=== PATIENT | female | born 1955 | race Caucasian/White ===

== ENCOUNTER 2017-03-25 07:14 | Emergency (ER) | payer BC ==
[2017-03-25 07:26] VITALS: BP 105/68
--- NOTE | 2017-03-25 07:40 | UC ---
Lower Extremity/Ankle HPI - HPI Summary HPI Summary: yesterday morning pt slipped twisting right ankle. Pt with pain and swelling since worse with movement and standing. no analgesia taken + applied ice no strike head, LOC no neck or back pain No knee or hip pain no paresthesia No other complaints Pt's medications reviewed this visit - History of Current Complaint Chief Complaint: UCLowerExtremity Stated Complaint: ANKLE INJURY Time Seen by Provider: 03/25/17 07:18 Hx Obtained From: Patient Hx Last Menstrual Period: NA Onset/Duration: Sudden Onset, Lasting Days Severity Initially: Mild Severity Currently: Mild Pain Intensity: 2 Pain Scale Used: 0-10 Numeric - Allergies/Home Medications Allergies/Adverse Reactions: Allergies Allergy/AdvReac Type Severity Reaction Status Date / Time MS Amoxicillin [Amoxicillin] Allergy Rash Verified 03/25/17 07:26 MS Fexofenadine Allergy Hives Verified 03/25/17 07:26 [From Janel] MS Sulfa Drugs [Sulfa Drugs] Allergy Rash Verified 03/25/17 07:26 Home Medications: Home Medications Rabeprazole Sodium [Aciphex] 20 mg PO DAILY WITH MEAL 03/25/17 [History Confirmed 03/25/17] PMH/Surg Hx/FS Hx/Imm Hx Previously Healthy: Yes GI/ History: Gastroesophageal Reflux - Surgical History Surgical History: None Surgery Procedure, Year, and Place: denies - Family History Known Family History: Positive: Hypertension - Social History Occupation: Employed Full-time Lives: With Family Alcohol Use: Occasionally Substance Use Type: None Smoking Status (MU): Former Smoker Review of Systems Constitutional: Negative Neurovascular: Other - right ankle pain All Other Systems Reviewed And Are Negative: Yes Physical Exam Triage Information Reviewed: Yes Appearance: Well-Appearing, No Pain Distress, Well-Nourished Vital Signs: Initial Vital Signs Temp 98.2 F 03/25/17 07:21 Pulse 74 03/25/17 07:21 Resp 18 03/25/17 07:21 BP 105/68 03/25/17 07:21 Pulse Ox 100 03/25/17 07:21 ENT: Positive: Hearing grossly normal Neck: Positive: Supple Respiratory: Positive: Normal breath sounds, No respiratory distress Cardiovascular: Positive: Other: - + 2+ DP, PT CBT <2 sec Musculoskeletal: Positive: Other: - + flex/ext knee + flex/ext ankle with pain lateral malleous + TTP inferior, anterior lat malleoulus pain palpatio 1st MT no crepitus Neurological Exam: Normal Neurological: Positive: Other: - + gross sensation throughout foot Psychological Exam: Normal Skin: Positive: Other - edema right lat malleolus no ecchymosis Diagnostics - Radiology No standard instances Radiology Interpretation Completed By: Radiologist - FINDINGS: There is an avulsion fracture lateral malleolus. There may be both acute and chronic changes. There is an old avulsion fracture medial malleolus. The ankle mortise is intact. There is lateral soft tissue swelling. IMPRESSION: EVIDENCE OF REMOTE POST TRAUMATIC INJURY WITH PROBABLE NEW SMALL AVULSION FRACTURE FROM THE LATERAL MALLEOLUS. LATERAL SOFT TISSUE SWELLING <Electronically signed by Kennedy Riley MD in [place]> 03/25/17837 Dictated By: Kennedy Riley MD Dictated Date/Time: 09/02 Transcribed Date/Time: 03/25/17835 Copy to: IMPRESSION: DEGENERATIVE CHANGES DESCRIBED. NO ACUTE FINDINGS. <Electronically signed by Kennedy Riley MD in [place]> 03/25/17838 Dictated By: Kennedy Riley MD Dictated Date /Time: 03/25/17838 Transcribed Date/Time: 03/25/17837 Copy to: Lower Extremity Course/Dx - Course Course Of Treatment: Pt with pain lateral right malleolus and medial MT s/p fal yesterday. declined analgesia. declined ice. image. cuong. air splint. possible crutches - Differential Dx/Diagnosis Provider Diagnoses: avulsion fracture. ankle sprain Discharge - Discharge Plan Condition: Stable Disposition: HOME Patient Education Materials: Ankle Sprain (ED), Avulsion Fracture (ED) Referrals: Sylvain Medina MD [Primary Care Provider] - Johan Lima MD [Medical Doctor] - 5 Days Additional Instructions: - wear cuong wrap and splint for comforta and support - alternate ibuprofen (Advil, motrin) and tylenol every 3horus as needed for pain - apply ice (wrapped in a towel)20 minutes at a time, 2-3 times a day - elevate your leg to help with swelling and pain - contact the orthopedic provider to schedule a follow-up appointment
--- NOTE | 2017-03-25 08:41 | RAD ---
INDICATION: Fall. Lateral left ankle pain COMPARISON: None TECHNIQUE: AP, lateral, and oblique views were obtained. FINDINGS: There is an avulsion fracture lateral malleolus. There may be both acute and chronic changes. There is an old avulsion fracture medial malleolus. The ankle mortise is intact. There is lateral soft tissue swelling. IMPRESSION: EVIDENCE OF REMOTE POST TRAUMATIC INJURY WITH PROBABLE NEW SMALL AVULSION FRACTURE FROM THE LATERAL MALLEOLUS. LATERAL SOFT TISSUE SWELLING
--- NOTE | 2017-03-25 08:42 | RAD ---
INDICATION: Right foot pain COMPARISON: None TECHNIQUE: AP, lateral, and oblique views were obtained. FINDINGS: There is no acute bony change. 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 There is a prominent plantar calcaneal spur. There is a tiny Achilles calcaneal spur. IMPRESSION: DEGENERATIVE CHANGES DESCRIBED. NO ACUTE FINDINGS.
== END 2017-03-25 09:10 | disposition home or self-care (01) ==
LOC: UCEAST 07:14
DX: S82.51XA Displaced fracture of medial malleolus of right tibia, initial encounter for closed fracture (principal); X50.0XXA Overexertion from strenuous movement or load, initial encounter; W18.40XA Slipping, tripping and stumbling without falling, unspecified, initial encounter; Y93.9 Activity, unspecified; Y92.9 Unspecified place or not applicable; Z87.891 Personal history of nicotine dependence
CPT/HCPCS: 99213; G0463

== ENCOUNTER 2017-10-31 17:21 | Emergency (ER) | payer BC ==
[2017-10-31 17:30] VITALS: BP 127/91
--- NOTE | 2017-10-31 17:41 | UC ---
Cardiac HPI - HPI Summary HPI Summary: 62 y/p female presents to the urgent care c/o c/o "muscle spasm" in both shoulders and upper chest for 20-30 seconds 2 wks ago. Same thing happened twice in the last 24 hours. Denies SOB, Diaphoresis, nausea or vomiting. - History of Current Complaint Chief Complaint: UCGeneralIllness Stated Complaint: MUSCLE SPASMS Time Seen by Provider: 10/31/17 17:35 Hx Obtained From: Patient Hx Last Menstrual Period: NA Pain Intensity: 0 - Allergy/Home Medications Allergies/Adverse Reactions: Allergies Allergy/AdvReac Type Severity Reaction Status Date / Time amoxicillin Allergy Rash Verified 10/31/17 17:35 fexofenadine [From Janel] Allergy Hives Verified 10/31/17 17:35 Sulfa (Sulfonamide Allergy Rash Verified 10/31/17 17:35 Antibiotics) PMH/Surg Hx/FS Hx/Imm Hx - Surgical History Surgical History: None Surgery Procedure, Year, and Place: denies - Family History Known Family History: Positive: Hypertension - Social History Alcohol Use: Occasionally Substance Use Type: None Smoking Status (MU): Former Smoker Physical Exam - Summary Physical Exam Summary: VITAL SIGNS: Reviewed. GENERAL: Patient is a well developed and nourished female who is sitting comfortable in the examining table. Patient is not in any acute respiratory distress. HEAD AND FACE: No signs of trauma. No ecchymosis, hematomas or skull depressions. No sinus tenderness. EYES: PERRLA, EOMI x 2, No injected conjunctiva, no nystagmus. No photophobia. EARS: Hearing grossly intact. Ear canals and tympanic membranes are within normal limits. Nose: edematous and erythematous nasal mucosa w/ clear nasal discharge. MOUTH: Positive no erythema, no tonsillar enlargement. Uvula in midline. NECK: Supple, trachea is midline, Positive anterior cervical lymphadenopathy, no JVD, no carotid bruit, no c-spine tenderness, neck with full ROM. No meningeal signs, no Kernig's or brudzinskis signs. CHEST: Symmetric, no tenderness at palpation LUNGS: Clear to auscultation bilaterally. No wheezing or crackles. CVS: Regular rate and rhythm, S1 and S2 present, no murmurs or gallops appreciated. ABDOMEN: Soft, non-tender. No signs of distention. No rebound no guarding, and no masses palpated. Bowel sounds are normal. EXTREMITIES: FROM in all major joints, no edema, no cyanosis or clubbing. NEURO: Alert and oriented x 3. No acute neurological deficits. Speech is normal and follows commands. SKIN: Dry and warm Triage Information Reviewed: Yes Vital Signs: Initial Vital Signs Temp 98.0 F 10/31/17 17:26 Pulse 74 10/31/17 17:26 Resp 12 10/31/17 17:26 BP 127/91 10/31/17 17:26 Pulse Ox 98 10/31/17 17:26 Discharge - Sign-Out/Discharge Documenting (check all that apply): Patient Departure - D/c home All imaging exams completed and their final reports reviewed: No Studies - Discharge Plan Condition: Stable Disposition: HOME Patient Education Materials: Muscle Spasm (ED) Referrals: Sylvain Medina MD [Primary Care Provider] - - Billing Disposition and Condition Condition: STABLE Disposition: Home
== END 2017-10-31 18:40 | disposition home or self-care (01) ==
LOC: UCEAST 17:21
DX: M62.838 Other muscle spasm (principal); R07.89 Other chest pain; Z88.0 Allergy status to penicillin; Z88.2 Allergy status to sulfonamides; Z88.8 Allergy status to other drugs, medicaments and biological substances; Z87.891 Personal history of nicotine dependence
CPT/HCPCS: 93005; 99212; G0463

== ENCOUNTER 2018-01-21 11:54 | Emergency (ER) | payer OTHER ==
--- NOTE | 2018-01-21 12:17 | UC ---
Upper Extremity HPI - HPI Summary HPI Summary: 62-year-old woman comes to clinic today with chief complaint of fall. Just prior to arrival she tripped and fell striking her right cheek right elbow left lower ribs and left anterior johnson. Denies any loss of consciousness. She is not on any blood thinners. She struck her face just below the right eye. No blurry vision no pain with movement of the eyes no double vision. Denies any jaw or tooth pain or nose pain. Denies any neck pain. Her biggest complaint at this moment is pain in the right elbow. It hurts in the proximal radial aspect of the elbow. Pain is worse with pronation and supination and flexion and extension of the elbow. Pain is less when she doesn't move it. She also has some left lower anterior rib pain. Denies any abdominal pain. Pain in the ribs is worse with taking a deep breath and with palpation. She does not feel short of breath at rest. She also has a laceration the left johnson. Upon investigation it does not appear to be any puncture wound going through the jeans. Denies any knee or ankle pain. She reports she is up-to-date with her tetanus. - History of Current Complaint Stated Complaint: FELL LEG,ELBOW,FACE INJURY Time Seen by Provider: 01/21/18 11:58 Hx Last Menstrual Period: NA - Allergies/Home Medications Allergies/Adverse Reactions: Allergies Allergy/AdvReac Type Severity Reaction Status Date / Time amoxicillin Allergy Rash Verified 01/21/18 12:13 fexofenadine [From Janel] Allergy Hives Verified 01/21/18 12:13 Sulfa (Sulfonamide Allergy Rash Verified 01/21/18 12:13 Antibiotics) PMH/Surg Hx/FS Hx/Imm Hx Previously Healthy: Yes GI/ History: Gastroesophageal Reflux - Surgical History Surgical History: None Surgery Procedure, Year, and Place: denies - Family History Known Family History: Positive: Cardiac Disease, Hypertension - Social History Alcohol Use: Occasionally Substance Use Type: None Smoking Status (MU): Former Smoker Review of Systems All Other Systems Reviewed And Are Negative: Yes Constitutional: Positive: Negative Skin: Positive: Other - see hpi Eyes: Positive: Negative. Negative: Blurred Vision, Diplopia, Photophobia ENT: Positive: Negative. Negative: Dental Pain Respiratory: Negative: Shortness Of Breath Cardiovascular: Positive: Other - see hpi Motor: Positive: Other - see hpi Neurovascular: Positive: Negative Musculoskeletal: Positive: Other: - see hpi Neurological: Positive: Negative Psychological: Positive: Negative Is Patient Immunocompromised?: No Physical Exam Triage Information Reviewed: Yes Appearance: Well-Appearing, Well-Nourished, Pain Distress - mild with rt elbow rom Vital Signs Reviewed: Yes Eye Exam: Normal Eyes: Positive: Conjunctiva Clear ENT: Positive: TMs normal, Other - There is some ecchymosis on the right zygomatic arch underneath the right eye.perrla/eomi. mildly tender at the area. The nose is nontender there is no nosebleed. Is nontender full range of motion no dental injury. Neck exam: Normal Neck: Positive: Supple, Nontender Respiratory: Positive: Lungs clear, Normal breath sounds, No respiratory distress, Other: - Tenderness to palpation left lower anterior ribs. Cardiovascular: Positive: RRR Abdomen Description: Positive: Nontender, Soft, Other: - Abdomen soft and nontender. Musculoskeletal: Positive: Other: - Tender to palpation in the proximal radius aspect of the right elbow. Pain with attempted pronation and supination and extension. Fingers and wrists have full range of motion. Normal capillary refill. Normal radial pulses. Both shoulders have full range of motion and are nontender. Left elbow was full range of motion and is nontender. Neurological Exam: Normal Neurological: Positive: Alert, Muscle Tone Normal Psychological Exam: Normal Psychological: Positive: Age Appropriate Behavior Skin: Positive: Other - Left Johnson shows a 1 cm laceration that is not bleeding at this time. Upper Extremity Course/Dx - Course Course Of Treatment: Order Information: RIBS LT UNI W/PA CH MIN 3 VWS. Accession Number: [id number]. CPT: 14160. Indication: Left rib pain. 3 views of left ribs are reviewed. Dual-energy PA views are reviewed. There appears to be a fracture of the left anterior eighth rib anteriorly. Minimal. displaced fracture is noted. No other fractures are identified. No definite pneumothorax. is noted on the dual energy PA view. IMPRESSION: There may be a minimally displaced fracture of the left anterior eighth rib. close to the costochondral junction. . <Electronically signed by Tila Moeller MD in [place]> 01/21/18 1312. Order Information: ELBOW RIGHT 3+ VWS. Accession Number: [id number]. CPT: 38509. INDICATION: RIGHT elbow posterior pain post fall. COMPARISON: No relevant prior exams available on the [facility] PACS for comparison. TECHNIQUE: AP, lateral, and oblique views RIGHT elbow. REPORT AND IMPRESSION: #. Displaced anterior fat pad indicating joint effusion. Minimally impacted radial head. neck junction fracture. No additional fracture evident. Normal articular alignment. Unremarkable soft tissue contours. . <Electronically signed by Sylvain Bales MD in [place]> 1307. I discussed the x-ray reports with the patient. Patient was placed in a sling for the right elbow. Neurovascularly intact after sling placement by nursing. Also patient sent home with an incentive spirometer. The plan will be to follow-up with orthopedics for the elbow fracture and her primary care physician for the rib fracture. We discussed closing the laceration on the left johnson. It's small enough for a can either be left open or be sutured. At this time the patient prefers to not have it sutured and I agree with that treatment at this time. We'll have her on clindamycin for prophylactic. - Differential Dx/Diagnosis Provider Diagnosis: Laceration of left leg, Rib fracture, Right radial head fracture, Facial contusion, Head injury Discharge - Sign-Out/Discharge Documenting (check all that apply): Patient Departure All imaging exams completed and their final reports reviewed: Yes - Discharge Plan Condition: Stable Disposition: HOME Prescriptions: Clindamycin Cap(NF) [Clindamycin Cap 300 mg Cap(NF)] 300 mg PO TID #30 cap Patient Education Materials: Elbow Fracture (ED), Rib Fracture (ED), Laceration Without Closure (ED), Head Injury (ED) Referrals: Sylvain Medina MD [Primary Care Provider] - Levi Hernandez MD [Medical Doctor] - Additional Instructions: FOLLOW UP WITH ORTHOPEDICS FOR YOUR ELBOW FRACTURE. FOLLOW UP WITH YOUR PRIMARY DOCTOR. USE THE INCENTIVE SPIROMETER DIRECTED TO HELP AVOID A RESPIRATORY INFECTION. GET RECHECKED FOR ANY WORSENING OF YOUR CONDITION; WEAKNESS, NUMBNESS, DIFFICULTY WITH VISION OR SPEECH, YOU FEEL ILL, UNEXPLAINED VOMITING, SHORTNESS OF BREATH OR QUESTIONS OR CONCERNS. - Billing Disposition and Condition Condition: STABLE Disposition: Home
[2018-01-21 12:20] VITALS: BP 162/97
[2018-01-21] MEDS ORDERED: Lidocaine 1%* 5 ML VIAL INJ ONE (12:49)
== END 2018-01-21 13:52 | disposition home or self-care (01) ==
LOC: UCEAST 11:54
DX: S81.812A Laceration without foreign body, left lower leg, initial encounter (principal); S22.32XA Fracture of one rib, left side, initial encounter for closed fracture; S52.121A Displaced fracture of head of right radius, initial encounter for closed fracture; S09.90XA Unspecified injury of head, initial encounter; W01.0XXA Fall on same level from slipping, tripping and stumbling without subsequent striking against object, initial encounter; Y93.9 Activity, unspecified; Y92.9 Unspecified place or not applicable; Z88.0 Allergy status to penicillin; Z88.2 Allergy status to sulfonamides; Z88.8 Allergy status to other drugs, medicaments and biological substances; Z87.891 Personal history of nicotine dependence
CPT/HCPCS: 99213; G0463